=== PATIENT | female | born 1935 | race Caucasian/White ===

== ENCOUNTER → 2016-08-18 | Outpatient (CLI) | payer MEDICARE, OTHER ==
[2016-08-18 18:07] LABS: PERCENT SATURATION 24.5 % (13.2-37.4)
== END ==
LOC: M LAB 17:12
PROVIDERS: ATTEND Orthopaedic Surgery Adult Reconstructive Orthopaedic Surgery
DX: E11.9 Type 2 diabetes mellitus without complications (principal); M25.50 Pain in unspecified joint

== ENCOUNTER 2016-09-06 16:21 | Outpatient (RCR) | payer MEDICARE, OTHER | END 2016-09-12 | LOC: M PT 16:21 | PROVIDERS: ATTEND Orthopaedic Surgery Adult Reconstructive Orthopaedic Surgery | DX: Z51.89 Encounter for other specified aftercare (principal) | CPT/HCPCS: 97162; G8978; G8979; G8980 ==

== ENCOUNTER → 2016-09-21 | Outpatient (REF) | payer MEDICARE, OTHER | LOC: M LAB REF 15:26 | PROVIDERS: ATTEND Family Medicine | DX: R19.7 Diarrhea, unspecified (principal) ==

== ENCOUNTER 2016-11-07 12:51 | Outpatient (RCR) | payer MEDICARE, OTHER | END 2016-11-10 | LOC: M PT 12:51 | PROVIDERS: ATTEND Orthopaedic Surgery | DX: Z96.642 Presence of left artificial hip joint (principal) | CPT/HCPCS: 97162; G8978; G8979 ==

== ENCOUNTER 2016-12-06 12:15 | Outpatient (RCR) | payer MEDICARE, OTHER | END 2016-12-10 | LOC: M PT 12:15 | PROVIDERS: ATTEND Orthopaedic Surgery | DX: Z47.1 Aftercare following joint replacement surgery (principal); Z96.642 Presence of left artificial hip joint ==

== ENCOUNTER 2016-12-20 12:15 | Outpatient (RCR) | payer MEDICARE, OTHER ==
[2016-12-22] MEDS ORDERED: LATA5OPD (16:26)
[2016-12-22] MEDS ORDERED: ATEN50TA9 (16:26)
[2016-12-22] MEDS ORDERED: ATOR1TAB21 (16:26)
[2016-12-22] MEDS ORDERED: CALC600T21 PO (16:26)
[2016-12-22] MEDS ORDERED: POTA20TA6 (16:26)
[2016-12-22] MEDS ORDERED: SERT-138 (16:26)
[2016-12-22] MEDS ORDERED: BUPR75TA5 (16:26)
[2016-12-22] MEDS ORDERED: K-TA1TAB PO (18:11)
[2016-12-22] MEDS ORDERED: ELIQ5TAB PO (18:11)
== END 2016-12-21 10:46 | disposition home or self-care (01) ==
LOC: M PT 12:15
PROVIDERS: ATTEND Orthopaedic Surgery
DX: M97.02XD Periprosthetic fracture around internal prosthetic left hip joint, subsequent encounter (principal); X58.XXXD Exposure to other specified factors, subsequent encounter; Y93.9 Activity, unspecified; Y92.9 Unspecified place or not applicable; Y99.8 Other external cause status; Z96.642 Presence of left artificial hip joint
CPT/HCPCS: 97110; 97116; G8978; G8979; G8980

== ENCOUNTER 2016-12-22 16:16 | Emergency (ER) | payer MEDICARE, OTHER ==
[~2016-12-22] VITALS: Ht 162.6 cm; Wt 68.0 kg
[2016-12-22] MEDS ORDERED: BUPR75TA5 (16:26)
[2016-12-22] MEDS ORDERED: ATEN50TA9 (16:26)
[2016-12-22] MEDS ORDERED: POTA20TA6 (16:26)
[2016-12-22] MEDS ORDERED: CALC600T21 PO (16:26)
[2016-12-22] MEDS ORDERED: ATOR1TAB21 (16:26)
[2016-12-22] MEDS ORDERED: SERT-138 (16:26)
[2016-12-22] MEDS ORDERED: LATA5OPD (16:26)
[2016-12-22 17:12] LABS: BASO % 0.3 % (0.0-1.0); EOS # 0.2 K/mm3 (0.0-0.50); LARGE UNSTAINED CELL # 0.2 K/mm3 (0.0-0.4); LYMPH # 2.2 K/mm3 (1.5-4.5); LYMPH % 30.1 % (24.0-44.0); MEAN CORPUSCULAR HEMOGLOBIN 33.4 pg (27.0-33.0); MEAN CORPUSCULAR VOLUME 98.3 fl (80.0-96.0); MONO # 0.6 K/mm3 (0.0-0.8); MONO % 8.6 % (0.0-5.0); NEUTROPHILS % 54.8 % (36.0-66.0); PLATELET COUNT, AUTOMATED 183 k/mm3 (150-450); RED CELL DISTRIBUTION WIDTH 13.1 % (11.5-14.5); WHITE BLOOD COUNT 7.3 K/mm3 (4.0-10.0)
[2016-12-22 17:35] LABS: INR 1.02
[2016-12-22 17:44] LABS: ALBUMIN 3.2 GM/DL (3.2-5.2); ALBUMIN/GLOBULIN RATIO 0.94 (1.00-1.93); BILIRUBIN,DIRECT 0.1 MG/DL (0.0-0.2); BILIRUBIN,TOTAL 0.5 MG/DL (0.2-1.0); CALCIUM LEVEL 9.1 MG/DL (8.8-10.2); CREATININE FOR GFR 1.06 MG/DL (0.55-1.02); GLOMERULAR FILTRATION RATE 53.1 (>32); POTASSIUM SERUM 3.2 MEQ/L (3.5-5.1); TOTAL PROTEIN 6.6 GM/DL (6.4-8.2)
[2016-12-22] MEDS ORDERED: K-TA1TAB PO (18:11)
[2016-12-22] MEDS ORDERED: ELIQ5TAB PO (18:11)
[2016-12-22] MEDS ORDERED: APIXABAN 5 MG TAB (ELIQUIS) PO ONE (18:15)
[2016-12-22 18:16] VITALS: BP 125/71
== END 2016-12-22 18:22 | disposition home or self-care (01) ==
LOC: M ED 17:27
DX: I82.402 Acute embolism and thrombosis of unspecified deep veins of left lower extremity (principal); E87.6 Hypokalemia; I10 Essential (primary) hypertension; I25.10 Atherosclerotic heart disease of native coronary artery without angina pectoris; Z98.890 Other specified postprocedural states; Z79.899 Other long term (current) drug therapy; Z79.01 Long term (current) use of anticoagulants; Z88.0 Allergy status to penicillin

== ENCOUNTER → 2016-12-22 | Outpatient (CLI) | payer MEDICARE, OTHER ==
[~2016-12-22] MED LIST: ATEN50TA9; ATOR1TAB21; BUPR75TA5; CALC600T21 PO; ELIQ5TAB PO; K-TA1TAB PO; LATA5OPD; POTA20TA6; SERT-138
--- NOTE | 2016-12-22 16:42 | REP ---
LEFT LOWER EXTREMITY DUPLEX DOPPLER VENOUS ULTRASOUND: Real-time compression and duplex Doppler interrogation of the left lower extremity deep venous system is performed. There is partial thrombosis of the left superficial femoral vein and popliteal vein. There is no deep vein thrombosis in the left common femoral vein or the vessel completely compressible with no intraluminal thrombus. IMPRESSION: Partial DVT left superficial vein and popliteal vein. Signed by Romel Ulloa MD 12/22/2016 08:05 P
--- NOTE | 2016-12-22 16:55 | REP ---
ULTRASOUND LEFT CALF: Real-time sonographic evaluation of the left calf is performed in the region of swelling. No mass or fluid collection is seen. IMPRESSION: No mass or fluid collection in the region of the left calf swelling. Signed by Romel Ulloa MD 12/22/2016 08:06 P
== END ==
LOC: M RAD 15:13
PROVIDERS: ATTEND Physician Assistant
DX: I82.432 Acute embolism and thrombosis of left popliteal vein (principal); R22.42 Localized swelling, mass and lump, left lower limb

== ENCOUNTER → 2017-06-25 | Outpatient (CLI) | payer MEDICARE, OTHER ==
[~2017-06-25] MED LIST changes: -CALC600T21 PO; +CALC600T60 PO
--- NOTE | 2017-06-25 16:43 | REP ---
Clinical: Follow-up. Previous left lower extremity thrombus. Technique: Ulloa scale and color Doppler evaluation using linear high frequency transducer. Findings: Ultrasound examination of the left lower extremity deep venous structures from the common femoral vein to the popliteal vein demonstrates normal compressibility flow and wave patterns in response to respiration and augmentation. There is no evidence for deep venous thrombosis. Impression: No evidence for deep venous thrombosis. Previously noted thrombus has resolved. Signed by Jabier Duran MD 06/25/2017 04:33 P
== END | disposition home or self-care (01) ==
LOC: M RAD 15:59
PROVIDERS: ATTEND Family Medicine
DX: Z86.718 Personal history of other venous thrombosis and embolism (principal)

== ENCOUNTER → 2017-08-21 | Outpatient (CLI) | payer MEDICARE, OTHER ==
[2017-08-21 20:24] LABS: BASO % 0.4 % (0.0-1.0); EOS # 0.1 10^3/uL (0.0-0.50); EOS % 1.8 % (0.0-3.0); HEMATOCRIT 39.3 % (36.0-47.0); HEMOGLOBIN 12.7 g/dl (12.0-16.0); IMMATURE GRANULOCYTE % 0.3 % (0-0); LYMPH # 2.5 10^3/uL (1.5-4.5); LYMPH % 33.1 % (24.0-44.0); MEAN CORPUSCULAR HEMOGLOBIN 31.3 pg (27.0-33.0); MEAN CORPUSCULAR HGB CONC 32.3 g/dl (32.0-36.5); MEAN CORPUSCULAR VOLUME 96.8 fl (80.0-96.0); MONO # 0.9 10^3/uL (0.0-0.8); MONO % 11.7 % (0.0-5.0); NEUTROPHILS % 52.7 % (36.0-66.0); PLATELET COUNT, AUTOMATED 199 10^3/uL (150-450); RED BLOOD COUNT 4.06 10^6/uL (4.00-5.40); WHITE BLOOD COUNT 7.7 10^3/uL (4.0-10.0)
[2017-08-21 20:52] LABS: ALBUMIN 3.6 GM/DL (3.2-5.2); ALBUMIN/GLOBULIN RATIO 1.13 (1.00-1.93); ALKALINE PHOSPHATASE 103 U/L (45-117); ALT/SGPT 21 U/L (12-78); ANION GAP 6 MEQ/L (8-16); AST/SGOT 22 U/L (7-37); BILIRUBIN,TOTAL 0.4 MG/DL (0.2-1.0); BLOOD UREA NITROGEN 17 MG/DL (7-18); CALCIUM LEVEL 9.3 MG/DL (8.8-10.2); CARBON DIOXIDE LEVEL 32 MEQ/L (21-32); CHLORIDE LEVEL 105 MEQ/L (98-107); CREATININE FOR GFR 1.01 MG/DL (0.55-1.02); GLOMERULAR FILTRATION RATE 56.1 (>32); GLUCOSE, FASTING 91 MG/DL (83-110); POTASSIUM SERUM 3.8 MEQ/L (3.5-5.1); SODIUM LEVEL 143 MEQ/L (136-145); TOTAL PROTEIN 6.8 GM/DL (6.4-8.2)
== END ==
LOC: M WUC 17:48
DX: R41.82 Altered mental status, unspecified (principal)
CPT/HCPCS: 80053

== ENCOUNTER → 2017-09-03 | Outpatient (REF) | payer MEDICARE, OTHER | LOC: M LAB REF 16:31 | DX: M54.5 Low back pain (principal); Z79.899 Other long term (current) drug therapy | CPT/HCPCS: 87086 ==

== ENCOUNTER → 2017-09-06 | Outpatient (REF) | payer MEDICARE, OTHER | LOC: M LAB REF 16:52 | DX: N39.0 Urinary tract infection, site not specified (principal) | CPT/HCPCS: 87086 ==

== ENCOUNTER → 2018-03-19 | Outpatient (REF) | payer MEDICARE, OTHER ==
[2018-03-19 19:21] LABS: VITAMIN B12 LEVEL 364 PG/ML (247-911)
[2018-03-20 10:05] LABS: GAMMA GLUTAMYLTRANSPEPTIDASE 16 U/L (5-55)
[2018-03-20 10:06] LABS: ALKALINE PHOSPHATASE 227 U/L (45-117); LABILE ALKPHOS 217 U/L; STABLE ALKPHOS 10 U/L
[2018-03-20 10:09] LABS: % LABILE ALKALINE PHOSPHATASE 95.6 %
== END ==
LOC: M LAB REF 17:00
DX: D51.9 Vitamin B12 deficiency anemia, unspecified (principal)
CPT/HCPCS: 82607

== ENCOUNTER → 2019-03-03 | Outpatient (REF) | payer MEDICARE, OTHER ==
[~2019-03-03] MED LIST changes: +LATA0.0013; -LATA5OPD
[2019-03-03 17:58] LABS: FOLATE 10.5 NG/ML
== END ==
LOC: M LAB REF 16:33
PROVIDERS: ATTEND Family Medicine
DX: F03.91 Unspecified dementia, unspecified severity, with behavioral disturbance (principal); D51.9 Vitamin B12 deficiency anemia, unspecified